=== PATIENT | male | born 1980 | race African-American/Black ===

== ENCOUNTER 2016-10-22 21:03 | Emergency (ER) | payer SELFPAY ==
[2016-10-22] MEDS ORDERED: Iohexol 300* (CONTRAST) 10 ML SDV IV ONE (21:54)
[2016-10-22 22:11] LABS: Hematocrit 48 % (42-52); Hemoglobin 15.8 g/dl (14.0-18.0); Mean Corpuscular HGB Conc 33 g/dl (31-36); Mean Corpuscular Hemoglobin 31 pg (27-31); Mean Corpuscular Volume 93 fL (80-94); Mean Platelet Volume 10 um3 (7.4-10.4); Red Blood Count 5.13 10^6/ul (4.0-5.4); Red Cell Distribution Width 14 % (10.5-15); White Blood Count 7.5 10^3/ul (3.5-10.8)
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
[2016-10-22 22:26] LABS: ALT 14 U/L (7-52); AST 31 U/L (13-39); Albumin 4.3 g/dL (3.2-5.2); Alkaline Phosphatase 77 U/L (34-104); Anion Gap 7 mmol/L (2-11); BUN/Creatinine Ratio 12.8 (8-20); Blood Urea Nitrogen 11 mg/dL (6-24); CO2 Carbon Dioxide 24 mmol/L (22-32); Calcium 9.3 mg/dL (8.6-10.3); Chloride 105 mmol/L (101-111); EGFR African American 130.9 (>60); EGFR Non-African American 101.8 (>60); Globulin 3.6 g/dL (2-4); Glucose 155 mg/dL (70-100); Potassium 3.4 mmol/L (3.5-5.0); Sodium 136 mmol/L (133-145); Total Protein 7.9 g/dL (6.4-8.9)
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
[2016-10-22 22:46] LABS: Alcohol < 10 mg/dL (<10)
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
[2016-10-23 00:03] VITALS: BP 118/78
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
== END 2016-10-23 00:01 | disposition home or self-care (01) ==
LOC: ED 21:03
DX: S40.012A Contusion of left shoulder, initial encounter (principal); M79.602 Pain in left arm; V49.9XXA Car occupant (driver) (passenger) injured in unspecified traffic accident, initial encounter; Y93.9 Activity, unspecified; Y92.9 Unspecified place or not applicable; R55 Syncope and collapse
CPT/HCPCS: 36415; 70450; 71260; 72125; 74177; 80053; 80320; 83605; 85025; 86850; 86900; 86901; 99282; G0480; Q9967

== ENCOUNTER 2016-11-27 12:16 | Emergency (ER) | payer SELFPAY ==
[2016-11-27 12:38] VITALS: BP 119/90
== END 2016-11-27 14:30 | disposition left against medical advice (07) ==
LOC: ED 12:16
DX: M54.5 Low back pain (principal); Z53.20 Procedure and treatment not carried out because of patient's decision for unspecified reasons
CPT/HCPCS: 99281

== ENCOUNTER → 2016-11-28 14:33 | Emergency (ER) | payer SELFPAY ==
[~2016-11-28 14:33] MED LIST: Cyclobenzaprine TAB* 10 MG PO ONE; HYDROcodone/ACETAMIN 5-325 MG* 1 TAB PO ONE
[2016-11-28 16:27] LABS: Hematocrit 47 % (42-52); Hemoglobin 15.6 g/dl (14.0-18.0); Mean Corpuscular HGB Conc 33 g/dl (31-36); Mean Corpuscular Hemoglobin 30 pg (27-31); Mean Corpuscular Volume 91 fL (80-94); Mean Platelet Volume 9 um3 (7.4-10.4); Red Blood Count 5.16 10^6/ul (4.0-5.4); Red Cell Distribution Width 13 % (10.5-15); White Blood Count 6.3 10^3/ul (3.5-10.8)
[2016-11-28 16:41] LABS: BUN/Creatinine Ratio 14.9 (8-20); Calcium 9.4 mg/dL (8.6-10.3); EGFR African American 129.2 (>60); EGFR Non-African American 100.4 (>60); Globulin 3.4 g/dL (2-4); Potassium 4.1 mmol/L (3.5-5.0); Total Bilirubin 0.4 mg/dL (0.2-1.0); Total Protein 7.4 g/dL (6.4-8.9)
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
[2016-11-28 18:04] VITALS: BP 109/79
== END | disposition home or self-care (01) ==
LOC: ED 14:33
DX: M54.40 Lumbago with sciatica, unspecified side (principal); R51 Headache; M25.512 Pain in left shoulder; Z88.0 Allergy status to penicillin; F17.200 Nicotine dependence, unspecified, uncomplicated; V89.2XXD Person injured in unspecified motor-vehicle accident, traffic, subsequent encounter; G44.209 Tension-type headache, unspecified, not intractable; M25.559 Pain in unspecified hip
CPT/HCPCS: 36415; 80053; 85025; 99283; A9270-GY